=== PATIENT | female | born 1960 | race Caucasian/White ===

== ENCOUNTER → 2020-01-06 09:57 | Outpatient (CLI) | payer OTHER, SELFPAY ==
--- NOTE | ~2020-01-06 | XR_ITS ---
EXAMINATION: XR knee RT 2V DATE: 01/06/2020 10:13 INDICATION: Right knee pain. TECHNIQUE: 2 views of right knee were obtained. COMPARISON: None. FINDINGS: Bone alignment is normal. No fracture. There is mild tricompartmental osteoarthritis. No kn ee joint effusion. IMPRESSION: 1. Mild right knee osteoarthritis. Reviewed, dictated and finalized at location A.
== END ==
PROVIDERS: PCP Nurse Practitioner Family; Visit Provider Nurse Practitioner Family
DX: M25.561 Pain in right knee (principal); M17.11 Unilateral primary osteoarthritis, right knee
CPT/HCPCS: 73560

== ENCOUNTER → 2020-02-27 07:43 | Outpatient (CLI) | payer OTHER, SELFPAY ==
--- NOTE | ~2020-02-27 | MR_ITS ---
EXAMINATION: MR knee RT wo con DATE: 02/27/2020 08:45 INDICATION: Right knee pain. TECHNIQUE: Magnetic resonance imaging (MRI) of the right knee was performed without intravenous contr ast. Sequences included axial PD-weighted FS FSE, coronal PD-weighted FSE and PD-weighted FS FSE, sag ittal PD-weighted FSE, and sagittal T2-weighted FS FSE. COMPARISON: Right knee radiographs 01/06/2020 FINDINGS: Medial compartment: There is a radial tear of posterior horn of medial meniscus. There is deep partial thickness cartilag e loss of tibial condyle involving the anteromedial articular surface with mild subchondral edema-lik e marrow signal intensity. There is deep partial thickness cartilage loss of femoral condyle involvin g the central and medial articular surface with mild subchondral edema-like marrow signal intensity. Lateral compartment: Lateral meniscus is normal. There is cartilage surface irregularity of femoral condyle and tibial con dyle. Patellofemoral compartment: There is shallow partial-thickness cartilage loss of patellar medial facet, median ridge, and lateral facet with mild subchondral edema-like signal intensity. There is cartilage surface irregularity of central trochlea. Ligaments and tendons: The anterior and posterior cruciate ligaments are normal. Medial collateral ligament is normal. There are changes of prior sprain of fibular collateral ligament characterized by thickening and increased signal intensity proximally. There is mild patellar tendinopathy. Fluid: There is a moderate-sized knee joint effusion. There is trace fluid in a Tena's cyst. There is mild prepatellar and superficial infrapatellar bursitis. IMPRESSION: 1. Moderate chondrosis of medial compartment and mild chondrosis of lateral and patellofemoral compar tments. 2. Tear of medial meniscus. 3. Moderate-sized knee joint effusion. Reviewed, dictated and finalized at location A. NURSE IMPRESSION: 1. Moderate chondrosis of medial compartment and mild chondrosis of lateral and patellofemoral compartments. 2. Tear of medial meniscus. 3. Moderate-sized knee joint effusion.
== END ==
PROVIDERS: PCP Family Medicine; Visit Provider Nurse Practitioner Family
DX: S83.241A Other tear of medial meniscus, current injury, right knee, initial encounter (principal); M71.561 Other bursitis, not elsewhere classified, right knee; M25.461 Effusion, right knee
CPT/HCPCS: 73721

== ENCOUNTER 2020-03-09 02:05 | Outpatient (CLI) | payer OTHER, SELFPAY ==
[2020-03-09 18:35] LABS: SARS-CoV-2 RNA PCR Negative
== END 2020-03-09 02:06 | disposition home or self-care (01) ==
LOC: ANHCOVIDDT 02:06
PROVIDERS: PCP Family Medicine; Visit Provider Orthopaedic Surgery
DX: Z01.812 Encounter for preprocedural laboratory examination (principal); Z20.828 Contact with and (suspected) exposure to other viral communicable diseases
CPT/HCPCS: 87635; C9803; U0003

== ENCOUNTER 2020-03-09 10:00 | Outpatient (CLI) | payer OTHER, SELFPAY ==
--- NOTE | 2020-03-09 10:09 | ECG_ITS ---
Measurements Intervals Steen Rate: 56 P: 31 MO: 135 QRS: 15 QRSD: 85 T: 31 QT: 423 QTc: 411 Interpretive Statements SINUS BRADYCARDIA VOLTAGE CRITERIA FOR LVH BORDERLINE T WAVE ABNORMALITY- INF/HIGH LAT LEADS BORDERLINE ECG Electronically Signed On 03-09-2020 10:26:56 DIELECTRIC PRESS OPERATOR by Ernesto Fonseca D.O.
== END 2020-03-09 10:01 | disposition home or self-care (01) ==
PROVIDERS: PCP Family Medicine; Visit Provider Orthopaedic Surgery
DX: Z01.810 Encounter for preprocedural cardiovascular examination (principal); I10 Essential (primary) hypertension
CPT/HCPCS: 93005

== ENCOUNTER 2020-03-12 01:07 | Day surgery (SDC) | payer OTHER, SELFPAY ==
[2020-03-06 12:44] VITALS: BMI 39.8
[2020-03-12] VITALS (11 sets, daily range): BP systolic 113–155; BP diastolic 61–83; PULSE 58–80; RESP 12–22; TEMP 36.3–36.5; O2SAT 97–100
--- NOTE | 2020-03-12 14:26 | WPDANESEPPF ---
Anes - Initial Pre Proc Eval Procedure: Operation Date: 03/12/20 16:00 Proposed Procedures p Arthroscopic Partial Medial Meniscectomy Right Knee - Pa Hyman MD Date/Time: 03/12/20 14:26 Surgeon: Pa Hyman MD Pre Op Diagnosis: medial meniscus tear Right knee Patient Data Age: 59 Gender: F Height: 5 ft 3 in Weight: 102 kg Allergies Allergy/AdvReac Type Severity Reaction Status Date / Time benazepril Allergy Mild Unknown Verified 03/06/20 11:41 Penicillins Allergy Unknown Unknown Verified 03/06/20 11:41 Home Medications Medication Instructions Recorded Confirmed Type tramadol 50 mg tablet 50 mg PO BID PRN #30 tablet 02/28/20 03/09/20 Rx atorvastatin 10 mg PO HS 03/06/20 03/09/20 History escitalopram oxalate [Lexapro] 20 mg PO QAM 03/06/20 03/09/20 History esomeprazole magnesium [Nexium] 20 mg PO DAILY 03/06/20 03/09/20 History ibuprofen 400 mg PO Q6H PRN 03/06/20 03/09/20 History levothyroxine 100 mcg PO QAM 03/06/20 03/09/20 History metoprolol succinate 25 mg PO QAM 03/06/20 03/09/20 History multivitamin [Daily Multiple] 1 tablet PO DAILY 03/06/20 03/09/20 History naproxen sodium [Aleve] 440 mg PO BID PRN 03/06/20 03/09/20 History tizanidine 4 mg PO HS 03/06/20 03/09/20 History alprazolam 0.5 mg tablet 0.5 mg PO QAM PRN #30 tablet 03/10/20 Rx Patient hx anesthesia problems: none Family hx anesthesia problems: none PMFSH Past Medical History Medical History Acquired hypothyroidism Acute right-sided low back pain with right-sided sciatica Anxiety disorder, unspecified Body mass index (BMI) 40.0-44.9, adult (01/05/18) Essential (primary) hypertension Folliculitis Hirsutism Intractable headache Mixed hyperlipidemia Morbid obesity Obesity (BMI 30-39.9) Obesity, unspecified Prediabetes Sciatica of right side Surgical History Surgical History History of appendectomy History of cholecystectomy Family History Family History Other Depression Diabetes mellitus Family history of alcoholism Family history of attention deficit hyperactivity disorder (ADHD) Family history of hearing loss Family history of hepatitis Family history of obesity Family history of thyroid disease Hypertension Social History Social History Smoking packs per day: 0.75 Smoking cigarettes per day: 15.0 Years smoked: 20 Smoking pack-years: 15.00 Smoking status: Former smoker Smoking end date: 09/24/09 Alcohol intake: never Substance use: never Living arrangements: with family Additional living arrangements comments: Spiritual care concerns: No Anes - Eval Final PreProcedure Day of Procedure 03/12/20 14:26 Patient weight: morbidly obese Heart: regular rate and rhythm Lungs: clear to auscultation Airway: Mallampati scale class II Neurological: alert and oriented Last oral intake: >/= 8 hours ASA classification: III Emergent: no Anesthetic plan: proceed Anesthesia type and monitoring: general LMA and standard monitoring Informed Consent: The patient's anesthetic plan and its attendant risks and benefits were discussed with the patient/family/POA. Questions were solicited and answers provided to the satisfaction of the patient/family/POA.
[2020-03-12] MEDS: LACTATED RINGERS 1,000 ML 30 ML IV CONT ×2 (14:52→16:52)
[2020-03-12] MEDS: ACETAMINOPHEN 500 MG TABLET 1000 MG PO (15:08)
[2020-03-12] MEDS: KETOROLAC 15 MG/ML VIAL (*BKC) IV PUSH (15:11)
--- NOTE | 2020-03-12 15:56 | WPDHPUPDATE1 ---
History and Physical Update Update Date/Time: 03/12/20 15:56 History and Physical has been reviewed, including an updated exam of the patient. There are NO changes in the patient's condition. Risks, benefits, and alternatives have been discussed and questions answered. Patient agrees to proceed with procedure.
[2020-03-12] MEDS: ceFAZolin 2 GM/D5W 50 ML 2 GM/50 ML BAG IVPB (16:02)
[2020-03-12] MEDS: BUPIVACAINE/EPINEPHRINE 0.25% 10 ML VIAL 30 ML INFILTRATE (16:18)
--- NOTE | 2020-03-12 16:53 | PM.PROC ---
Procedure Note - Detailed Date of procedure: 03/12/20 Pre-op diagnosis: medial meniscus tear Right knee Medial meniscus tear. Post-op diagnosis: same Procedure performed: Arthroscopic partial medial meniscectomy. Anesthesia: GETA Surgeon: Pa Hyman MD Estimated blood loss (mL): 5 Complications: None Condition: stable Findings: Brief History: The patient complained of knee pain, swelling and mechanical symptoms despite conservative treatment. MRI confirmed the presence of a meniscus tear. Operative Findings: Complex posterior horn tear. Radial component noted and degenerative meniscus along the posterior medial aspect. Debridement carried out with the shaver and punches. Very thin amount of meniscus remained posteriorly. Grade 2 chondromalacia on the femur and tibia. Femur posterior lateral and tibia medial. Lateral compartment showed grade 1/2 chondromalacia on the tibia with softening and fissuring. The femur was normal. The trochlea was benign. The patella showed grade 1 chondromalacia centrally. This was lightly debrided. Procedure Details: The patient was identified and the surgical site confirmed and signed in the preoperative holding area. Antibiotics were started per protocol. She was brought to the operative room and transferred to the OR table. A general anesthetic was administered. Supine position with the operative lower extremity position in the leg stone after placement of a well padded tourniquet. The leg support was lowered and the contralateral limb was supported with a soft bolster. The knee was prepped and draped in the usual sterile fashion. A time-out was performed. The portal sites were marked and infiltrated with 0.5% Marcaine 20 mL. The limb was exsanguinated and the tourniquet inflated to 300 mL Hg. Standard inferolateral and inferomedial portals were established. Inflow was obtained with the saline pump. The camera was introduced. Diagnostic inspection of the joint was accomplished. The meniscus was debrided with the arthroscopic shaver and punches until stable. The arthroscopic instruments were removed. The tourniquet released and wounds closed with subcutaneous 3-0 Monocryl absorbable suture. Steri strips and a sterile dressing were applied. A light elastic wrap was placed. The patient was extubated and brought to the recovery room in stable condition.
[2020-03-12] MEDS: fentaNYL CITRATE INJ (*CRX) 100 MCG/2 ML VIAL 25 MCG IV PUSH ×9 (17:08→17:48)
[2020-03-12] MEDS: oxyCODONE HCL (*CRX) 5 MG TAB IR PO (18:57)
[2020-03-12] MEDS: ONDANSETRON INJ 4 MG/2 ML VIAL IV PUSH (18:57)
--- NOTE | 2020-03-12 19:50 | SUR.PHASEII ---
PT PHARMACY WAS CLOSED BY TIME OF DISCHARGE. PT HAS A PRESCRIPTION AT HOME OF TRAMADOL. DR CHOWDHURY SAID THAT SHE SHOULD TAKE THE TRAMADOL TONIGHT FOR PAIN CONTROL AND THEN TOMORROW ASSISTANT PASTRY CHEF NORCO WITH AN ADDITIONAL PRESCRIPTION OF ZOFRAN. PT AND ARE OK WITH THIS PLAN.
== END 2020-03-12 19:35 | disposition home or self-care (01) ==
PROVIDERS: PCP Family Medicine; Visit Provider Orthopaedic Surgery
PROC: (CPT 29870; principal; 2020-03-12 16:00)
DX: S83.231A Complex tear of medial meniscus, current injury, right knee, initial encounter (principal); W19.XXXA Unspecified fall, initial encounter; M94.261 Chondromalacia, right knee; E03.9 Hypothyroidism, unspecified; F41.9 Anxiety disorder, unspecified; E66.01 Morbid (severe) obesity due to excess calories; Z68.41 Body mass index [BMI] 40.0-44.9, adult; L73.9 Follicular disorder, unspecified; L68.0 Hirsutism; R73.03 Prediabetes
CPT/HCPCS: 29881; 87635; 93005; A9270; C9803; J0690; J1885; J2250; J2405; J2704; J3010; J7120; U0003

== ENCOUNTER 2020-07-10 15:03 | Outpatient (CLI) | payer MEDICARE, SELFPAY ==
--- NOTE | ~2020-07-10 | XR_ITS ---
XR hand RT 2V DATE: 07/10/2020 15:38 INDICATION: Fall on right arm 2 weeks ago. Right hand pain TECHNIQUE: AP and lateral views COMPARISON: None FINDINGS: No fracture or dislocation, periosteal reaction or bone destruction. IMPRESSION: No fracture or dislocation Reviewed, dictated and finalized at location A. IMPRESSION: No fracture or dislocation
--- NOTE | ~2020-07-10 | XR_ITS ---
XR elbow RT 2V DATE: 07/10/2020 15:39 INDICATION: Fall on right arm 2 weeks ago. Right elbow pain TECHNIQUE: AP and lateral views COMPARISON: None FINDINGS: No fracture or dislocation or joint effusion. No periosteal reaction or bone destruction. IMPRESSION: No fracture or dislocation or joint effusion Reviewed, dictated and finalized at location A.
--- NOTE | ~2020-07-10 | XR_ITS ---
XR forearm RT 2V DATE: 07/10/2020 15:38 INDICATION: Fall on right arm 2 weeks ago; right forearm pain TECHNIQUE: AP and lateral views COMPARISON: None FINDINGS: No fracture or dislocation, periosteal reaction or bone destruction. Normal alignment at th e elbow and wrist joints. IMPRESSION: Negative Reviewed, dictated and finalized at location A. IMPRESSION: Negative
--- NOTE | ~2020-07-10 | XR_ITS ---
XR humerus RT DATE: 07/10/2020 15:39 INDICATION: Fall on right arm 2 weeks ago. Right arm, elbow, forearm pain TECHNIQUE: 3 views COMPARISON: None FINDINGS: No fracture or dislocation of the humerus. Normal alignment at the acromioclavicular, gleno humeral and elbow joints. IMPRESSION: Negative right humerus Reviewed, dictated and finalized at location A. IMPRESSION: Negative right humerus
== END 2020-07-10 15:04 | disposition home or self-care (01) ==
PROVIDERS: PCP Family Medicine; Visit Provider Nurse Practitioner Family
DX: M79.601 Pain in right arm (principal); W19.XXXA Unspecified fall, initial encounter
CPT/HCPCS: 73060; 73070; 73090; 73120

== ENCOUNTER → 2020-07-31 10:39 | Outpatient (CLI) | payer MEDICARE, SELFPAY ==
--- NOTE | ~2020-07-31 | MM_ITS ---
EXAMINATION: MM screening [facility] BI w tiffany HISTORY: Screening TECHNIQUE: Craniocaudal and mediolateral oblique 3-D tomosynthesis images were obtained and synthetic 2-D images were generated. CAD analysis was submitted and interpreted. COMPARISON: 09/11/2012 BREAST PARENCHYMAL COMPOSITION: There are scattered areas of fibroglandular density. FINDINGS: Breast asymmetries are stable. There is no evidence of suspicious mass, calcification, or a rchitectural distortion to suggest malignancy in either breast. There has been no suspicious interval change. IMPRESSION: 1. No mammographic evidence of malignancy. 2. Recommend routine screening mammography in one year. BI-RADS Category 1: Negative Reviewed, dictated and finalized at location A.
== END ==
PROVIDERS: PCP Family Medicine; Visit Provider Nurse Practitioner Family
DX: Z12.31 Encounter for screening mammogram for malignant neoplasm of breast (principal)
CPT/HCPCS: 77063; 77067

== ENCOUNTER 2020-11-03 13:11 | Outpatient (CLI) | payer MEDICARE, SELFPAY ==
--- NOTE | 2020-11-03 14:01 | ECG_ITS ---
Measurements Intervals [place] Rate: 63 P: 39 CO: 157 QRS: 25 QRSD: 80 T: 50 QT: 430 QTc: 440 Interpretive Statements SINUS RHYTHM VOLTAGE CRITERIA FOR LVH BASELINE ARTIFACT- I, II, III, AVR, AVL, AVF BORDERLINE ECG Electronically Signed On 11-03-2020 14:50:26 CDT by Ernesto Fonseca D.O.
[2020-11-03 14:02] LABS: Hematocrit 42.7 % (37.0-47.0); Hemoglobin 14.1 g/dL (12.0-15.0); Mean Corpuscular Hemoglobin 28.3 pg (26-34); Mean Corpuscular Volume 85.7 fl (80-100); Platelet Count Result 205 k/mm3 (150-375); Red Blood Count 4.98 M/mm3 (4.2-5.4); White Blood Count 9.7 K/mm3 (4.5-10.0)
[2020-11-03 14:22] LABS: Alanine Aminotransferase 98 U/L (4-35); Albumin Level 4.2 g/dL (3.5-5.1); Alkaline Phosphatase 76 U/L (38-126); Anion Gap 7 mmol/L (8-16); Aspartate Amino Transferase 78 U/L (14-36); Bilirubin,Total 0.7 mg/dL (0.2-1.3); Blood Urea Nitrogen 12 mg/dL (7-17); Calcium 9.5 mg/dL (8.4-10.2); Carbon Dioxide 26 mmol/L (22-30); Chloride 107 mmol/L (98-107); Estimated Glomerular Filt Rate > 60; Glucose 120 mg/dL (65-110); Sodium 140 mmol/L (137-145)
== END 2020-11-03 13:12 | disposition home or self-care (01) ==
LOC: ANHLAB 13:16
PROVIDERS: PCP Family Medicine; Visit Provider Nurse Practitioner Family
DX: I10 Essential (primary) hypertension (principal)
CPT/HCPCS: 36415; 80053; 85027; 93005

== ENCOUNTER → 2021-09-06 10:53 | Outpatient (CLI) | payer MEDICARE, SELFPAY ==
--- NOTE | ~2021-09-06 | US_ITS ---
EXAMINATION: US soft tissue head and neck DATE: 09/06/2021 11:24 INDICATION: Localized swelling, mass and lump, neck. TECHNIQUE: Multiple ultrasound images of the neck were obtained. COMPARISON: None. FINDINGS: The right thyroid lobe measures 3.3 x 1.4 x 1.2 cm. The left thyroid lobe measures 1.4 x 2.9 x 1.2 c m. The thyroid is diffusely heterogeneous and hypoechoic. Vascularity is normal. No discrete nodule. There are normal lymph nodes in the neck bilaterally. IMPRESSION: 1. Heterogeneous thyroid, likely chronic lymphocytic (María) thyroiditis. 2. No abnormal cervical lymphadenopathy. Reviewed, dictated and finalized at location B.
== END ==
PROVIDERS: PCP Family Medicine; Visit Provider Nurse Practitioner Family
DX: E03.9 Hypothyroidism, unspecified (principal)
CPT/HCPCS: 76536

== ENCOUNTER → 2022-04-06 10:43 | Outpatient (CLI) | payer MEDICARE, SELFPAY ==
--- NOTE | ~2022-04-06 | MR_ITS ---
EXAMINATION: MR brain/brain stem wo/w con DATE: 04/06/2022 11:26 INDICATION: Headache. TECHNIQUE: Magnetic resonance imaging (MRI) of the brain and brainstem was performed without and with 14 mL MultiHance intravenous contrast. COMPARISON: Brain MRI 08/03/2010 FINDINGS: There is no intracranial hemorrhage, acute infarction, or abnormal intracranial mass lesion . There are scattered areas of nonspecific increased T2-weighted signal intensity in the cerebral whi te matter and héctor, which is within normal limits for the patient's age. The ventricles are normal in size. The paranasal sinuses are clear. The orbits are normal. The mastoid air cells are normal. IMPRESSION: 1. Normal aging brain. Reviewed, dictated and finalized at location A. LER DRIVER IMPRESSION: 1. Normal aging brain.
== END ==
PROVIDERS: PCP Family Medicine; Visit Provider Nurse Practitioner Family
DX: R51.9 Headache, unspecified (principal)
CPT/HCPCS: 70553; A9577

== ENCOUNTER 2022-12-22 09:07 | Outpatient (CLI) | payer MEDICARE, SELFPAY ==
--- NOTE | 2022-12-22 09:10 | EST_ITS ---
Patient Info Name: Madeline León Age: 62 years : 1960 Gender: Female Ht: 62 in Wt: 163 lbs BSA: 1.82 m2 HR: 56 bpm BP: 190 / 89 mmHg Heart Rhythm: Sinus Rhythm Exam Date: 12/22/2022 9:50 AM Exam Location: [facility] Stress Patient Status: Outpatient Admit Date: 12/22/2022 Staff Ordering Physician: Elizabeth Tamayo Attending Provider: Elizabeth Tamayo Exercise Technologist: Marielos Salazar CT Exercise Physician: Ernesto Fonseca DO Exam Type: CA stress test treadmill Study Info A treadmill exercise stress test was performed. Summary 1. 1. Negative Hayden exercise stress test for ischemic ST changes by ECG criteria. 2. 2. Good functional capacity, achieving 10 METs of workload. 3. 3. Baseline hypertension with hypertensive response to exercise. 4. 4. Appropriate HR response to exercise. 5. 5. Appropriate HR recovery at 1 minute post exercise. 6. 6. No imaging with stress testing. 7. 7. Patient informed of the above results. Protocol: [facility] Stress ECG Details Stage: REST Duration (min): 1 min : 59 sec Speed (mph): 0.0 Grade (%): 0 HR (bpm): 55 SBP (mmHg): 190 DBP (mmHg): 89 METS: --- Stage: REST Duration (min): 6 min : 24 sec Speed (mph): 0.0 Grade (%): 0 HR (bpm): 61 SBP (mmHg): 190 DBP (mmHg): 89 METS: --- Stage: STAGE 1 Duration (min): 1 min : 0 sec Speed (mph): 1.7 Grade (%): 10 HR (bpm): 74 SBP (mmHg): 190 DBP (mmHg): 89 METS: --- Stage: STAGE 1 Duration (min): 2 min : 0 sec Speed (mph): 1.7 Grade (%): 10 HR (bpm): 78 SBP (mmHg): 190 DBP (mmHg): 89 METS: --- Stage: STAGE 1 Duration (min): 3 min : 0 sec Speed (mph): 1.7 Grade (%): 10 HR (bpm): 80 SBP (mmHg): 190 DBP (mmHg): 89 METS: --- Stage: STAGE 2 Duration (min): 1 min : 0 sec Speed (mph): 2.5 Grade (%): 12 HR (bpm): 87 SBP (mmHg): 192 DBP (mmHg): 80 METS: --- Stage: STAGE 2 Duration (min): 2 min : 0 sec Speed (mph): 2.5 Grade (%): 12 HR (bpm): 98 SBP (mmHg): 192 DBP (mmHg): 80 METS: --- Stage: STAGE 2 Duration (min): 3 min : 0 sec Speed (mph): 2.5 Grade (%): 12 HR (bpm): 101 SBP (mmHg): 208 DBP (mmHg): 82 METS: --- Stage: STAGE 3 Duration (min): 1 min : 0 sec Speed (mph): 3.4 Grade (%): 14 HR (bpm): 121 SBP (mmHg): 207 DBP (mmHg): 85 METS: --- Stage: STAGE 3 Duration (min): 2 min : 0 sec Speed (mph): 3.4 Grade (%): 14 HR (bpm): 135 SBP (mmHg): 207 DBP (mmHg): 85 METS: --- Stage: STAGE 3 Duration (min): 2 min : 2 sec Speed (mph): 3.4 Grade (%): 14 HR (bpm): 135 SBP (mmHg): 207 DBP (mmHg): 85 METS: --- Stage: RECOVERY Duration (min): 0 min : 57 sec Speed (mph): 0.0 Grade (%): 0 HR (bpm): 98 SBP (mmHg): 226 DBP (mmHg): 84 METS: --- Stage: RECOVERY Duration (min): 1 min : 10 sec Speed (mph): 0.0 Grade (%): 0 HR (bpm): 89 SBP (mmHg): 226
== END 2022-12-22 09:08 | disposition home or self-care (01) ==
PROVIDERS: PCP Family Medicine; Visit Provider Nurse Practitioner Family
DX: R07.89 Other chest pain (principal); I10 Essential (primary) hypertension
CPT/HCPCS: 93017

== ENCOUNTER 2023-05-19 14:03 | Outpatient (CLI) | payer OTHER, SELFPAY ==
--- NOTE | ~2023-05-19 | CT_ITS ---
EXAMINATION: CT LE RT wo con DATE: 05/19/2023 14:48 INDICATION: Right knee osteoarthritis for preoperative planning. TECHNIQUE: High resolution computed tomography (CT) of the right lower extremity from the hip through the ankle was performed without intravenous contrast. Additional sagittal and coronal reconstruction s were performed. Automated exposure control and iterative reconstruction technique were employed. Th e dose-length product was 1566.81 mGy-cm. COMPARISON: 02/24/2023 FINDINGS: Bone alignment is normal. No fracture. Tricompartmental osteoarthritis at the right knee with mild merna int space narrowing at and small marginal osteophytes at the lateral and patellofemoral compartments. Some reticular sclerosis and a few tiny cystlike changes along the weightbearing medial femoral cond yle and medial tibial plateau consistent with severe osteoarthritis with severe joint space narrowing better appreciated on the prior weightbearing imaging. No knee joint effusion. Mild to moderate oste oarthritis at the right hip with subarticular cystlike change at the anterosuperior acetabulum sugges ting overlying high-grade chondromalacia. Mild osteoarthritis at the right ankle and a few of the gerald nts in the visualized mid and hindfoot. Portions of the pelvis are unremarkable. No pathologically en larged right pelvic or inguinal lymphadenopathy. Soft tissues throughout the right lower limb are unr emarkable. IMPRESSION: 1. Severe medial compartment predominant tricompartmental osteoarthritis at the right knee. Reviewed, dictated and finalized at location A. EMENTERIE WORKER
[2023-05-19 14:44] LABS: Hematocrit 40.9 % (37.0-47.0); Hemoglobin 13.5 g/dL (12.0-15.0)
[2023-05-19 14:55] LABS: Albumin Level 4.1 g/dL (3.5-5.1); Estimated Glomerular Filt Rate > 60; Glucose 113 mg/dL (65-110)
[2023-05-19 17:24] LABS: Urine Cotinine NEGATIVE
== END 2023-05-19 14:04 | disposition home or self-care (01) ==
PROVIDERS: PCP Family Medicine; Visit Provider Orthopaedic Surgery
DX: Z01.818 Encounter for other preprocedural examination (principal); M17.11 Unilateral primary osteoarthritis, right knee; I10 Essential (primary) hypertension; E78.2 Mixed hyperlipidemia; Z79.899 Other long term (current) drug therapy
CPT/HCPCS: 73700; 80307; 82040; 82565; 82947; 85014; 85018

== ENCOUNTER → 2023-05-24 12:39 | Outpatient (CLI) | payer OTHER, SELFPAY ==
--- NOTE | ~2023-05-24 | MM_ITS ---
EXAMINATION: MM screening [facility] BI w tiffany HISTORY: Screening TECHNIQUE: Craniocaudal and mediolateral oblique 3-D tomosynthesis images were obtained and synthetic 2-D images were generated. CAD analysis was submitted and interpreted. COMPARISON: Comparison to multiple prior studies sequentially, with oldest reviewed study dated 04/2008. BREAST PARENCHYMAL COMPOSITION: Dense: The breasts are heterogeneously dense, which may obscure small masses FINDINGS: Bilateral breast asymmetries are unchanged from prior studies. There is no evidence of susp icious mass, calcification, or architectural distortion to suggest malignancy in either breast. There has been no suspicious interval change. IMPRESSION: 1. No mammographic evidence of malignancy. 2. Recommend routine screening mammography in one year. BI-RADS Category 1: Negative Reviewed, dictated and finalized at location A. TERINTELLIGENCE AGENT
== END ==
PROVIDERS: PCP Family Medicine; Visit Provider Family Medicine
DX: Z12.31 Encounter for screening mammogram for malignant neoplasm of breast (principal)
CPT/HCPCS: 77063; 77067

== ENCOUNTER 2023-07-17 11:37 | Outpatient (CLI) | payer OTHER, SELFPAY ==
[2023-07-17 12:54] LABS: Basophils Percent Auto 0.4 % (0.2-1.2); Eosinophils Absolute Auto 0.1 K/mm3 (0-0.3); Eosinophils Percent Auto 1.7 % (0-4.4); Immature Granulocyte Absolute 0.02 K/mm3 (0.00-0.031); Immature Granulocyte Percent A 0.2 % (0-0.5); Lymphocytes Absolute Auto 3.12 K/mm3 (0.9-3.2); Lymphocytes Percent Auto 36.8 % (18.3-44.2); Mean Corpuscular HGB Conc 33.3 g/dl (32-36); Mean Corpuscular Hemoglobin 28.9 pg (26-34); Mean Corpuscular Volume 86.6 fl (80-100); Mean Platelet Volume 10.4 fl (7.4-10.4); Monocytes Absolute Auto 0.5 K/mm3 (0.1-0.6); Monocytes Percent Auto 6.3 % (2.6-8.5); Neutrophils Absolute Auto 4.6 K/mm3 (1.3-6.7); Neutrophils Percent Auto 54.6 % (45.5-73.1); Platelet Count Result 214 k/mm3 (150-375); Red Blood Count 4.85 M/mm3 (4.2-5.4); Red Cell Distribution Width 13.2 % (11.5-14.5); White Blood Count 8.5 K/mm3 (4.5-10.0)
[2023-07-17 13:15] LABS: Urine Cotinine NEGATIVE
[2023-07-17 13:22] LABS: Albumin Level 4.3 g/dL (3.5-5.1); Estimated Glomerular Filt Rate > 60; Glucose 103 mg/dL (65-110)
[2023-07-17 14:18] LABS: MRSA (PCR) NOT DETECTED (NOT DETECTE)
[2023-07-17 17:02] LABS: Hemoglobin A1C 5.5 % (<5.7)
== END 2023-07-17 11:38 | disposition home or self-care (01) ==
LOC: ANHSURGERY 11:41
PROVIDERS: PCP Family Medicine; Visit Provider Orthopaedic Surgery
DX: Z01.818 Encounter for other preprocedural examination (principal); M17.11 Unilateral primary osteoarthritis, right knee
CPT/HCPCS: 80307; 82040; 82565; 82947; 83036; 85025; 87641

== ENCOUNTER 2023-08-08 00:32 | Day surgery (SDC) | payer OTHER, SELFPAY ==
[2023-07-17 11:50] VITALS: BMI 31.6
--- NOTE | 2023-07-17 12:14 | PC.NURSE ---
Report to the Outpatient Waiting Room, entrance under the green pavilion located off [facility], at time _0930 on date _08/08/23 . Planned Procedure Time: __1130 . Time changes happen often and if your time is changed the preop area will call you the afternoon before. - You and your visitor will be asked to self-screen and do not enter if you have any COVID symptoms. - A mask is optional within the hospital at this time. Patients may have clear liquids (water, carbonated beverages, clear teas, apple juice) until 3 hours prior to surgery ( 8:30 AM)with a maximum of 20 ounces. - No food from midnight until time of surgery - Infants may have breast milk until 4 hours before surgery, infant formula 6 hours prior to surgery. - Children will be allowed to drink immediately following surgery. If applicable, please bring a bottle or sippy cup to assist with drinking. Juice, water, soda, and popsicles are readily available. For infants on formula, please bring formula the day of surgery. Pacifiers are allowed. Take the following medications with a SIP of water the morning of surgery: ___ALPRAZOLAM,ESCITALOPRAM,LEVOTHYROXINE,METOPROLOL DO NOT STOP ANY OF YOUR OTHER PRESCRIPTION MEDICATIONS PRIOR TO SURGERY ?EXCEPT THE FOLLOWING Medications to discontinue per physician _PT STATES __HOLD ALL VITAMINS AND SUPPLEMENTS 7 DAYS PRE OP _PER DR COHWDHURY.LAST DOSE /07/31/23 MAY TAKE TYLENOL IF NEEDED FOR PAIN Please no make-up, nail brazilian, hairspray, perfume, deodorant, or body powder the day of surgery. No jewelry (including any body piercings) or valuables the day of surgery, leave them at home. Please take a shower or bath the night before, or the morning of, surgery with an antibacterial soap. Wear comfortable, loose fitting clothing. Children are encouraged to wear pajamas. - Jewelry must be removed prior to entering the operating room. Rings and piercings that are not removed may be cut off. - The hospital will not accept responsibility for valuables. - Please leave all valuables, including medications, at home the day of surgery. If you are going home after surgery, a licensed auto haulaway driver must drive you home. - NO public transportation without another adult if you receive anesthesia. - We recommend that an adult stay with you for 24 hours following discharge. - We also recommend that you do not drive, make important decision, drink alcoholic beverages, or take any drugs that were not prescribed by your health care provider for at least 24 hours after your discharge time. Follow any additional instructions given to you from your surgeon. If you or anyone in your household have experienced Covid symptoms in the past week, please notify your surgeon or the nurse liaison at the phone number below for possible testing. VERBAL AND WRITTEN instructions given to ___PATIENT and asked if any additional questions and then verbalized understanding. Patient advised to call surgeon office or pre surgery nurse liaison [phone] if any additional questions.
[2023-07-17 12:31] VITALS: BP 172/85; PULSE 50; RESP 18; TEMP 36.9; O2SAT 99
[2023-08-08] VITALS (15 sets, daily range): BP systolic 123–191; BP diastolic 78–98; PULSE 52–82; RESP 10–20; TEMP 35.6–36.3; O2SAT 95–100
--- NOTE | ~2023-08-08 | XR_ITS ---
EXAMINATION: [id number]_[id number]_CR DATE: 08/08/2023 14:34 INDICATION: Postoperative evaluation following right total knee arthroplasty. TECHNIQUE: Anteroposterior and lateral views of the right knee were obtained. COMPARISON: None. FINDINGS: Right total knee arthroplasty without patellar resurfacing appears well seated and in near anatomic a lignment. No fractures identified. Expected postoperative subcutaneous and intra-articular gas. IMPRESSION: 1. Right total knee arthroplasty, negative for postoperative purposes. Reviewed, dictated and finalized at location B.
[2023-08-08] MEDS: LACTATED RINGERS 1,000 ML 30 ML IV CONT ×2 (09:35→13:07)
[2023-08-08] MEDS: ACETAMINOPHEN 500 MG TABLET 1000 MG PO (09:35)
[2023-08-08] MEDS: TRANEXAMIC ACID 1,000MG/ISO100 1,000 MG/100 ML BAG 200 MG IVPB (09:35)
--- NOTE | 2023-08-08 10:56 | WPDANESEPPF ---
Anes - Initial Pre Proc Eval Procedure: Operation Date: 08/08/23 11:00 Proposed Procedures p Right Custom Total Knee Arthroplasty - Pa Hyman MD Date/Time: 08/08/23 10:56 Surgeon: Pa Hyman MD Pre Op Diagnosis: primary oa right knee Patient Data Age: 62 Gender: F Height: 1.57 m Weight: 78.6 kg Last Vital Signs Temp 97.3 F L 08/08/23 10:07 Pulse 52 L 08/08/23 10:07 Resp 16 08/08/23 10:07 BP 140/82 08/08/23 10:07 Pulse Ox 97 08/08/23 10:07 O2 Del Method Room Air 08/08/23 10:07 Allergies Allergy/AdvReac Type Severity Reaction Status Date / Time benazepril Allergy Mild Unknown Verified 08/08/23 10:01 Penicillins Allergy Unknown Unknown Verified 08/08/23 10:01 Home Medications Medication Instructions Recorded Confirmed Type escitalopram oxalate 20 mg tablet 20 mg PO DAILY #90 tabs 03/23/23 08/08/23 Rx ezetimibe 10 mg tablet (Zetia) 10 mg PO DAILY #90 tabs 05/18/23 07/21/23 Rx metoprolol tartrate 25 mg tablet See Rx Instructions .Route 05/24/23 08/08/23 Rx .COMPLEX #60 tabs acetaminophen 325 mg capsule 325 mg PO PRN PRN Pain 07/17/23 07/21/23 History (Tylenol) alprazolam 0.5 mg tablet (Xanax) 0.5 mg PO DAILY 07/17/23 08/08/23 History biotin 5,000 mcg sublingual tablet 5,000 mcg sublingual DAILY 07/17/23 07/21/23 History calcium cit 250 mg-ergocalciferol 1 tablet PO DAILY 07/17/23 07/21/23 History (vit D2) 2.5 mcg (100 unit) tablet cholecalciferol (vitamin D3) 50 50 mcg PO DAILY 07/17/23 07/21/23 History mcg (2,000 unit) disintegrating tablet cyanocobalamin (vitamin B-12) 1,000 mcg PO DAILY 07/17/23 07/21/23 History 1,000 mcg tablet multivitamin (Daily Multi-Vitamin 1 tablet PO DAILY 07/17/23 08/08/23 History tablet) pantoprazole 20 mg tablet,delayed 20 mg PO PRN PRN Heartburn 07/17/23 07/21/23 History release cyclobenzaprine 10 mg tablet 10 mg PO .HS PRN muscle spasm #30 07/21/23 07/21/23 Rx tabs levothyroxine 75 mcg tablet 75 mcg PO DAILY #90 tabs 07/26/23 Rx Laboratory Tests 08/08/23 09:56 Blood Type A Negative Antibody Screen Pending Patient hx anesthesia problems: none Family hx anesthesia problems: none Results Review: All pre-operative results and documents have been reviewed as part of the pre-operative evaluation. [facility] Past Medical History Medical History Acquired hypothyroidism Acute right-sided low back pain with right-sided sciatica Anxiety disorder, unspecified BMI 29.0-29.9,adult BMI 30.0-30.9,adult Body mass index (BMI) 40.0-44.9, adult (01/05/18) Essential (primary) hypertension Folliculitis Hirsutism Intractable headache Mixed hyperlipidemia Morbid (severe) obesity due to excess calories Morbid obesity Obesity (BMI 30-39.9) Obesity, unspecified Prediabetes Sciatica of right side Surgical History Surgical History Gastric bypass status for obesity History of appendectomy History of cholecystectomy Status post medial meniscectomy of right knee Family History Family History Father Diabetes mellitus Hypertension S/P removal of lung Mother Hypertension Sibling Diabetes mellitus Obesity Depression Acute myocardial infarction Hypertension Hx of thyroid cancer Thyroid cancer Sibling Acute myocardial infarction Thyroid cancer Other Family history of alcoholism Family history of attention deficit hyperactivity disorder (ADHD) Family history of hearing loss Family history of hepatitis Family history of obesity Family history of thyroid disease Social History Social History Smoking packs per day: 0.75 Smoking cigarettes per day: 15.0 Years smoked: 20 S
[2023-08-08] MEDS: SCOPOLAMINE 1 MG PATCH 1 PATCH TRANSDERM (11:00)
--- NOTE | 2023-08-08 11:03 | WPDHPUPDATE1 ---
History and Physical Update Update Date/Time: 08/08/23 11:03 History and Physical has been reviewed, including an updated exam of the patient. There are NO changes in the patient's condition. Risks, benefits, and alternatives have been discussed and questions answered. Patient agrees to proceed with procedure.
--- NOTE | 2023-08-08 11:09 | WPDANESPNB ---
Anes - Peripheral Nerve Block Date/Time: 08/08/23 11:09 I have discussed with the patient/family/POA the placement of a peripheral nerve block for post-operative pain management, including associated risks, benefits, complications, and side effects. Alternative methods of post-operative analgesia were detailed. Questions were solicited and answers provided to the satisfaction of the patient/family/POA. Time-Out: A pre-procedural Time-Out was completed immediately before starting the procedure and confirmed: Patient Identification, Site, Procedure, Patient Position and the Availability of Requisite Equipment. Clinical Indications: Acute post-operative pain management requested by the operative surgeon. Nerve Block Insertion Note Anes-nerve block: adductor canal Patient position: supine Skin prep: chlorhexidine Needle: 22 gauge, stimulating, insulated echogenic needle. Needle length: 80 mm Technique: ultrasound Injectate: other (Bupiv 0.5%, 15 mls. ) Observations: tolerated well Complications: none Procedure start time:: 1059 Procedure end time:: 1104
[2023-08-08] MEDS: ceFAZolin 2 GM/D5W 50 ML 2 GM/50 ML BAG IVPB ×2 (11:11→20:09)
[2023-08-08] MEDS: SODIUM CHLORIDE 0.9% IV 38.7 ML, MORPHINE SULFATE INJ (*CRX) 2 MG, ROPivacaine HCL 1% 2... INFILTRATE (12:02)
[2023-08-08] MEDS: TRANEXAMIC ACID 1,000 MG/10 ML AMPUL 1000 MG IV PUSH (12:42)
--- NOTE | 2023-08-08 13:31 | P.OP_ITS ---
Procedure Note - Detailed Date of Procedure 08/08/23 Pre-op Diagnosis primary oa right knee Post-op Diagnosis Same Procedure Performed Total knee arthroplasty, right Surgeon Pa Hyman MD Senior Front End Web Developer Liat Martinez PA-C Anesthesia General and Regional (Subsartorial block.) Findings Custom total knee arthroplasty implants fit anatomically. No releases required. Description of Procedure Preoperative antibiotics were given. The limb was prepped and draped in the usual sterile fashion with a well-padded tourniquet high on the thigh. A longitudinal incision was created just medial to the patella. A subvastus approach to the knee was performed. Arthrotomy was taken down through the joint capsule. No significant releases were initially taken. The femur was exposed and the F1 jig was applied. The coring tool was used to remove the cartilage for the F2 jig to sit flush with the bone. The jig was pinned and the distal cut carefully taken. Caliper measurements confirmed appropriate bony resections according to the preoperative templated plan. The F4 cutting jig for the femur was applied, at the standard rotation. The AP and anterior chamfer cuts were taken. The F5 jig was applied and the posterior chamfer cuts were taken. The tibia was prepared using the T1 jig, after removing cartilage for the jig contact points. Proper alignment was checked with the alignment greg. The tibia was cut using the T1u guide. Gap balancing was performed. Gap measurements were taken and the knee was trialed. Excellent alignment and soft tissue balancing was confirmed. The posterior cruciate ligament was recessed along the proximal tibia. The patella was denervated. Meniscal remnants were removed. The trial components were assembled. Excellent range of motion and proper soft tissue balancing were confirmed throughout the full range of motion. Patellar tracking was excellent. The limb was exsanguinated and the tourniquet inflated to 300 mmHg. The knee was copiously irrigated periodically throughout the procedure. The real implants were cemented into position. Excess cement was carefully removed. The wound was closed in layers with interrupted #1 Vicryl suture, 2-0 strata fix suture, 0 strata fix suture, 2-0 strata fix suture. Steri-Strips placed on the skin with the knee flexed. Sterile bulky dressing applied. The patient was brought to the recovery room in stable condition. There were no complications. Physician professional nursing assistant, Liat Pisarski, PA-C, required for surgery; including patient positioning, draping, tissue retraction, maintaining instrument position, cement removal, wound closure, and dressing placement. Implants Conformis Custom total knee arthroplasty. Cemented. Cruciate retaining. 6A insert. Estimated Blood Loss 150 Drains No Complications No immediate complications Condition Stable Disposition PACU [facility] Billing Surgery - Charge Forward: Surgery Billing
[2023-08-08] MEDS: fentaNYL CITRATE INJ (*CRX) 100 MCG/2 ML VIAL 25 MCG IV PUSH ×8 (13:52→14:27)
--- NOTE | 2023-08-08 15:10 | PC.NURSE ---
This patient, Madeline León, was admitted to 3 Med Surg Room 301-01. Patient/family oriented to hospital policies and general routines including ID bracelet, bed and alarms, visiting hours, pain management, procedures, bathroom and other care routines, personal items, smoking policy, room service/diet, and visiting hours. Information on how to activate the Rapid Response Team has been discussed. Patient/Family are encouraged to report perceived risks to care and to ask questions if they do not understand what they are told or what they should do.
[2023-08-08] MEDS: IBUPROFEN IV 800 MG/200 ML 800 MG/200 ML BAG 400 MG IVPB ×2 (16:09→22:51)
[2023-08-08] MEDS: METOPROLOL TARTRATE 25 MG TABLET PO (16:10)
[2023-08-08] MEDS: predniSONE 5 MG TABLET PO (16:11)
[2023-08-08] MEDS: SENNA/DOCUSATE SODIUM TABLET 2 TAB PO (16:11)
[2023-08-08] MEDS: ACETAMINOPHEN 325 MG TABLET 650 MG PO (18:07)
[2023-08-08] MEDS: ASPIRIN 81 MG ENTERIC TABLET PO (20:10)
[2023-08-08] MEDS: SODIUM CHLORIDE 0.9% IV 100 ML (20:10)
[2023-08-09] MEDS: ACETAMINOPHEN 325 MG TABLET 650 MG PO ×3 (00:20→11:01)
[2023-08-09 00:24] VITALS: BP 131/71; PULSE 58; RESP 16; TEMP 36.2; O2SAT 99
[2023-08-09 04:24] VITALS: BP 153/75; PULSE 54; RESP 14; TEMP 36.2; O2SAT 96
[2023-08-09] MEDS: ceFAZolin 2 GM/D5W 50 ML 2 GM/50 ML BAG IVPB ×2 (04:45→11:01)
[2023-08-09] MEDS: IBUPROFEN IV 800 MG/200 ML 800 MG/200 ML BAG 100 MG IVPB (05:53)
[2023-08-09 06:10] LABS: Basophils Percent Auto 0.1 % (0.2-1.2); Hematocrit 36.8 % (37.0-47.0); Hemoglobin 12.3 g/dL (12.0-15.0); Immature Granulocyte Absolute 0.08 K/mm3 (0.00-0.031); Immature Granulocyte Percent A 0.6 % (0-0.5); Lymphocytes Absolute Auto 1.17 K/mm3 (0.9-3.2); Lymphocytes Percent Auto 8.3 % (18.3-44.2); Mean Corpuscular HGB Conc 33.4 g/dl (32-36); Mean Corpuscular Volume 86.8 fl (80-100); Mean Platelet Volume 11.6 fl (7.4-10.4); Monocytes Absolute Auto 0.6 K/mm3 (0.1-0.6); Neutrophils Absolute Auto 12.3 K/mm3 (1.3-6.7); Nucleated Red Blood Cells Perc 0.1 % (0.0-0.2); Platelet Count Result 181 k/mm3 (150-375); Red Blood Count 4.24 M/mm3 (4.2-5.4); Red Cell Distribution Width 12.8 % (11.5-14.5); White Blood Count 14.1 K/mm3 (4.5-10.0)
[2023-08-09 06:28] LABS: Anion Gap 6 mmol/L (4-12); Blood Urea Nitrogen 13 mg/dL (7-17); Calcium 8.9 mg/dL (8.4-10.2); Carbon Dioxide 23 mmol/L (22-30); Chloride 107 mmol/L (98-107); Estimated CRCL calculation 57 ml/min; Estimated Glomerular Filt Rate > 60; Glucose 239 mg/dL (65-110); Sodium 136 mmol/L (137-145)
--- NOTE | 2023-08-09 07:46 | PM.DS ---
DS: Admitting Diagnosis Discharge Date 08/09/23 Admitting Diagnosis Knee arthritis. DS: Discharge Diagnosis Discharge Diagnosis (1) Status post total right knee replacement: Code(s): Z96.651 - Presence of right artificial knee joint Status: Acute Assessment and Plan: Postop day 1: Right total knee arthroplasty. Patient tolerated procedure well. No complications. Pain manageable with pain medication. No numbness or tingling. We had a lengthy discussion regarding postoperative wound care, limitations, expectations, and exercises. Patient shows good understanding. She has had initial physical therapy and is tolerating it well. DVT prophylaxis: 81 mg baby aspirin b.i.d. for 14 days. Pain medication: Percocet. Prednisone. Patient has followup appointment with Dr. Hyman in 3 weeks. DS: Summary Hospital Course Reason for hospitalization: Total knee arthroplasty Hospital Course: Patient tolerated procedure well. Has had initial PT/OT. No complications. Pain well managed. Status at Discharge Functional status at discharge: uses cane/walker Overall status at discharge: patient is progressing back to baseline Time Spent with Patient Time attestation: Total time spent providing and/or coordinating discharge services: Exam Narrative: Overweight 62 y/o female. Resting comfortably in chair. No acute distress. A&O x3. Wearing compression socks bilaterally. Dressing intact with no drainage. Moderate swelling. Small area of ecchymosis medially. Soft. No erythema. No hematoma. Good early range of motion. Calf nontender. Neurologic status intact. No varicosities. Distal pulses palpable. DS: Data Data Completed and Pending Labs on day of discharge: Labs from last 24 hours 08/09/23 08/08/23 05:01 09:56 WBC 14.1 H RBC 4.24 Hgb 12.3 Hct 36.8 L MCV 86.8 MCH 29.0 MCHC 33.4 RDW 12.8 Plt Count 181 MPV 11.6 H Immature Gran % (Auto) 0.6 H Neut % (Auto) 87.0 H Lymph % (Auto) 8.3 L Luna % (Auto) 4.0 Eos % (Auto) 0.0 Baso % (Auto) 0.1 L Lymph # (Auto) 1.17 Luna # (Auto) 0.6 Eos # (Auto) 0.0 Baso # (Auto) 0.0 Abs Immat Gran (auto) 0.08 H Absolute Neuts (auto) 12.3 H Absolute Nucleated RBC 0.020 H Nucleated RBC % 0.1 Sodium 136 L Potassium 4.0 Chloride 107 Carbon Dioxide 23 Anion Gap 6 BUN 13 Creatinine 0.90 Estim Creat Clear Calc 57 Estimated GFR > 60 Glucose 239 H Calcium 8.9 Blood Type A Negative Antibody Screen Negative Discharge Plan Discharge Patient Disposition: Home, Self-Care Discharge Instructions: See green instruction sheets Remove the Scopolamine patch that was placed behind your ear in 72 hours or less. Wash your hands after touching. Stand Alone Forms: General Discharge Instructions Follow-up/Referrals: Liat Martinez PA [Physician Brand Sales Consultant] - Discharge Medications: New aspirin 81 mg tablet,delayed release (DR/EC) 81 mg PO BID 14 Days Qty: 28 0RF prednisone 5 mg tablet 5 mg PO DAILY 21 Days Qty: 21 0RF oxycodone-acetaminophen 5-325 mg tablet 1 - 2 tablet PO Q4-6H MDD 6 PRN (Reason: pain) Qty: 30 0RF Continued cyclobenzaprine 10 mg tablet 10 mg PO .HS PRN (Reason: muscle spasm) Qty: 30 3RF alprazolam [Xanax] 0.5 mg tablet 0.5 mg PO DAILY pantoprazole 20 mg tablet,delayed release (DR/EC) 20 mg PO PRN PRN (Reason: Heartburn) multivitamin [Daily Multi-Vitamin] Tablet 1 tablet PO DAILY calcium citrate-vitamin D2 250 mg-2.5 mcg (100 unit) Tablet 1 tablet PO DAILY biotin 5,000 mcg Tablet, Sublingual 5,000 mcg SUBLINGUAL DAILY cyanocobalamin (vitamin B-12) 1,000 mcg Tablet 1,000 mcg PO DAILY cholecalciferol (vitamin D3) 50 mcg (2,000 unit) Tablet,Disintegrating 50 mcg PO DAILY acetaminophen [Tylenol] 325 mg Capsule 325 mg PO PRN PRN (Reason: Pain) escitalopram oxalate 20 m
[2023-08-09 08:10] VITALS: BP 152/78; PULSE 64; RESP 16; TEMP 36.4; O2SAT 99
[2023-08-09] MEDS: CYCLOBENZAPRINE HCL 10 MG TABLET PO (08:42)
[2023-08-09] MEDS: polyethylene glycoL 3350 17 GM POWD.PACK PO (08:42)
[2023-08-09] MEDS: METOPROLOL TARTRATE 25 MG TABLET PO (08:42)
[2023-08-09] MEDS: EZETIMIBE 10 MG TABLET PO (08:42)
[2023-08-09] MEDS: ESCITALOPRAM OXALATE 10 MG TABLET 20 MG PO (08:42)
[2023-08-09] MEDS: SENNA/DOCUSATE SODIUM TABLET 2 TAB PO (08:42)
[2023-08-09] MEDS: traMADol HCL (*CRX) 50 MG TABLET PO (08:43)
[2023-08-09] MEDS: ASPIRIN 81 MG ENTERIC TABLET PO (08:43)
[2023-08-09 12:02] VITALS: BP 147/68; PULSE 74; RESP 18; TEMP 36.7; O2SAT 98
== END 2023-08-09 13:07 | disposition home or self-care (01) ==
LOC: ANHSURGERY 11:25 → ANH3MEDSUR 14:42
PROVIDERS: Physician Assistant Surgical; PCP Family Medicine; Visit Provider Orthopaedic Surgery
PROC: (CPT 27447; principal; 2023-08-08 11:00)
DX: M17.11 Unilateral primary osteoarthritis, right knee (principal); G89.18 Other acute postprocedural pain; E03.9 Hypothyroidism, unspecified; I10 Essential (primary) hypertension; E78.2 Mixed hyperlipidemia; E66.9 Obesity, unspecified; Z68.31 Body mass index [BMI] 31.0-31.9, adult; Z98.84 Bariatric surgery status; F41.9 Anxiety disorder, unspecified; Z87.891 Personal history of nicotine dependence
CPT/HCPCS: 27447; 64447; 36415; 73560; 80048; 80307; 82040; 82565; 82947; 83036; 85025; 86850; 86900; 86901; 87641; 97110; 97116; 97161; 97165; 97530; 97535; A9270; C1713; C1776; J0171; J0690; J1100; J1596; J1741; J1885; J2250; J2270; J2405; J2704; J2795; J3010; J7120; J7512

== ENCOUNTER 2023-09-26 14:11 | Outpatient (CLI) | payer OTHER, SELFPAY ==
--- NOTE | ~2023-09-26 | XR_ITS ---
XR knee RT 3V Ordering provider: Pa Hyman MD History: . Z47.1 - Aftercare following joint replacement surgery . Comparison: February 24, 2023 FINDINGS: BONES: No acute fracture or dislocation. JOINT SPACES: Total knee arthroplasty. SOFT TISSUES: Normal. IMPRESSION: No acute osseous abnormality right knee. Total knee arthroplasty. Reviewed, dictated and finalized at location A.
== END 2023-09-26 14:12 | disposition home or self-care (01) ==
LOC: ANHIMG 14:15
PROVIDERS: PCP Family Medicine; Visit Provider Orthopaedic Surgery
DX: Z47.1 Aftercare following joint replacement surgery (principal); Z96.651 Presence of right artificial knee joint
CPT/HCPCS: 73562

== ENCOUNTER 2023-10-25 15:20 | Outpatient (CLI) | payer OTHER, SELFPAY ==
--- NOTE | ~2023-10-25 | MR_ITS ---
EXAMINATION: MR brain/brain stem wo con DATE: 10/25/2023 15:53 INDICATION: Disorientation, unspecified. TECHNIQUE: Magnetic resonance imaging (MRI) of the brain and brainstem was performed without intraven ous contrast. COMPARISON: Brain MRI 04/06/2022 FINDINGS: There is no intracranial hemorrhage, acute infarction, or abnormal intracranial mass lesion . There are scattered areas of nonspecific increased T2-weighted signal intensity in the cerebral whi te matter and héctor, which is within normal limits for the patient's age. The ventricles are normal in size. The orbits are normal. The paranasal sinuses are clear. The mastoid air cells are normal. IMPRESSION: 1. Normal aging brain. Reviewed, dictated and finalized at location A. IMPRESSION: 1. Normal aging brain.
== END 2023-10-25 15:21 ==
LOC: MICIMG 15:21
PROVIDERS: PCP Family Medicine; Visit Provider Nurse Practitioner Family
DX: R41.0 Disorientation, unspecified (principal)
CPT/HCPCS: 70551

== ENCOUNTER 2024-02-02 12:00 | Outpatient (CLI) | payer OTHER, SELFPAY ==
--- NOTE | ~2024-02-02 | XR_ITS ---
EXAMINATION: XR knee RT 3V DATE: 02/02/2024 12:12 INDICATION: Aftercare following joint replacement surgery. Right knee pain. TECHNIQUE: 3 views of right knee including standing views were obtained. COMPARISON: Right knee radiographs 09/26/2023 FINDINGS: There is a total right knee arthroplasty without patellar resurfacing in near-anatomic alig nment. No fracture. No periprosthetic lucency to suggest loosening or infection. There are osteophyte s of the patella. There is a small knee joint effusion. IMPRESSION: 1. Total right knee arthroplasty in near-anatomic alignment. 2. Mild osteoarthritis of patellofemoral compartment. 3. Small knee joint effusion. Reviewed, dictated and finalized at location A. MAN
== END 2024-02-02 12:01 | disposition home or self-care (01) ==
LOC: MICIMG 12:01
PROVIDERS: PCP Orthopaedic Surgery; Visit Provider Orthopaedic Surgery
DX: Z47.1 Aftercare following joint replacement surgery (principal); M17.11 Unilateral primary osteoarthritis, right knee; M25.461 Effusion, right knee
CPT/HCPCS: 73562

== ENCOUNTER 2024-05-06 08:47 | Outpatient (CLI) | payer MEDICARE, SELFPAY ==
--- NOTE | 2024-05-06 08:58 | ECHO_ITS ---
Patient Info Name: Madeline León Age: 63 years : 1960 Gender: Female Ht: 62 in Wt: 166 lbs BSA: 1.84 m2 HR: 42 bpm BP: 161 / 100 mmHg Technical Quality: Good Exam Date: 05/06/2024 9:07 AM Exam Location: Echo Lab Patient Status: Outpatient Admit Date: 05/06/2024 Staff Ordering Physician: Elizabeth Tamayo Arboriculturist: Carmelina Lira RDCS Attending Provider: Elizabeth Tamayo Referring Physician: Roni GRAHAM; Exam Type: CA echo doppler color flow Study Info Indications I10 - Essential (primary) hypertension Complete two-dimensional, color flow and Doppler transthoracic echocardiogram is performed. Summary 1. Complete two-dimensional, color flow and Doppler transthoracic echocardiogram is performed. 2. Left ventricular chamber dimension is normal. 3. Left ventricular systolic function is normal, estimated at 60-65%. 4. The left ventricular diastolic function is abnormal. 5. E/e' 10 is mildly elevated. 6. Global longitudinal strain is normal at -17.2%. 7. Left atrial chamber dimension is mildly enlarged. 8. There is mild aortic valve sclerosis. 9. There is mild aortic valve regurgitation. 10. There is trace tricuspid valve regurgitation. 11. No pulmonary hypertension, estimated pulmonary arterial systolic pressure is 23 mmHg. 12. There is mild pulmonic regurgitation. Left Ventricle E/e' 10 is mildly elevated. Global longitudinal strain is normal at -17.2%. Left ventricular chamber dimension is normal. Left ventricular systolic function is normal, estimated at 60-65%. The left ventricular diastolic function is abnormal. Right Ventricle Right ventricular systolic function is normal and with normal TAPSE 2.2 cm. Right ventricular chamber dimension is normal. Left Atria Left atrial chamber dimension is mildly enlarged. Right Atria Right atrial chamber dimension is normal. Aortic Valve The aortic valve is trileaflet. There is mild aortic valve sclerosis. There is no aortic valve stenosis. There is mild aortic valve regurgitation. Pulmonic Valve There is mild pulmonic regurgitation. Mitral Valve There is no mitral valve stenosis. There is no mitral valve regurgitation. Tricuspid Valve There is trace tricuspid valve regurgitation. No pulmonary hypertension, estimated pulmonary arterial systolic pressure is 23 mmHg. Pericardium/Pleural There is no pericardial effusion. Inferior Vena Cava Normal inferior vena cava with >50% collapse upon inspiration consistent with normal right atrial pressure, 5 mmHg. Aorta The aortic root size at the sinus of Valsalva is normal. Left Ventricular Outflow Tract Name Value Normal LVOT 2D LVOT Diameter 2.0 cm LVOT Doppler LVOT Peak Gradient 4 mmHg LVOT Mean Gradient 2 mmHg LVOT VTI 23 cm LVOT VTI/AV VTI Ratio 0.8 LVOT Stroke Volume 73 ml LVOT CO 3.2 l/min LVOT CI 1.8 l/min/m2 Pulmonic Valve Name Value Normal RVOT Doppler RVOT Peak Gradient 2 mmHg PV Doppler PV Peak Gradient 3 mmHg Mitral Valve Name Value Normal MV Doppler MV Decel Randall 473 cm/s2 MV PHT 50 ms MV Area (PHT) 4.4 cm2 4.0-5.0 MV Diastolic Function MV E Peak Velocity 81 cm/s MV A Peak Velocity 51 cm/s MV E/A 1.6 MV Decel Time 172 ms Tricuspid Valve Name Value Normal TV Regurgitation Doppler TR Peak Velocity 214 cm/s TR Peak Gradient 18 mmHg Estimated PAP/RSVP RA Pressure 5 mmHg <=5 PA Systolic Pressure 23 mmHg <36 RV Systolic Pressure 23 mmHg <36 Aorta Name Value Normal Ascending Aorta Ao Root Diameter (MM) 2.9 cm Ao Root Diam Index (MM) 1.6 cm/m2 Aortic Valve Name Value Normal AV Doppler AV Peak Velocity 115 cm/s AV Peak Gradient 5 mmHg AV Mean Gradient 3 mmHg AV VTI 28 cm AV Area (Cont Eq VTI) 2.7 cm2 >=3.0 AV Area (Cont Eq Deon) 2.7 cm2 AV Regurgitation 2D LVOT Area 3.2 cm2 AV Regurgitation Doppler AR Decel Time 3,074 ms AR Decel Randall 150 cm/s2 AR PHT 892 ms Ventricles Name Value Normal LV Dimensions 2D/MM IVS Diastolic Thickness (2D) 1.1 cm 0.6-1.0 IVS Diastole Thickness (MM) 0.9 cm 0.6-0.9 LVID Diastole (2D) 3.9 cm 3.8-5.2 LVID Diastole (MM) 5.5 cm 3.8-5.2 LVIW Diastolic Thickness (2D) 1.1 cm 0.6-0.9 LVIW Diastolic Thickness (MM) 0.8 cm 0.6-0.9 LVID Systole (2D) 2.5 cm 2.2-3.5 LVID Systole (MM) 3.6 cm 2.2-3.5 LVOT Diameter 2.0 cm LV Mass (2D Cubed) 144.46 g 67.00-162.00 LV Mass Index (2D Cubed) 78 g/m2 43-95 Relative Wall Thickness (2D) 0.57 LV Mass (MM Cubed) 170.98 g 67.00-162.00 LV Mass Index (MM Cubed) 93 g/m2 43-95 Relative Wall Thickness (MM) 0.28 LV Fractional Shortening/Ejection Fraction 2D/MM LV Fractional Shortening (2D) 38 % 27-45 LV Fractional Shortening (MM) 34 % 27-45 LV EF (MM Teicholz) 63 % 54-74 LV EF (2D Teicholz) 68 % 54-74 LV Diastolic Volume (4C MOD) 80 ml LV EF (4C MOD) 71 % LV Diastolic Volume (2C MOD) 72 ml LV EF (2C MOD) 64 % LV Diastolic Volume (BP MOD) 77 ml 46-106 LV Diastolic Volume Index (BP MOD) 42 ml/m2 29-61 LV Systolic Volume (BP MOD) 25 ml 14-42 LV Systolic Volume Index (BP MOD) 14 ml/m2 8-24 LV EF (BP MOD) 68 % 54-74 LV Diastolic Length (4C) 8.6 cm LV Systolic Length (4C) 6.8 cm LV Stroke Volume (4C MOD) 56 ml Atria Name Value Normal LA Dimensions LA Dimension (MM) 4.1 cm 2.7-3.8 LA Volume (4C A-L) 50 ml LA Volume (BP A-L) 50 ml RA Dimensions RA Area (4C) 11.7 cm2 <=18.0 EchoPAC Name Value Normal AutoEF LVCO_BiP_Q (Kjnm9LEH) 1.9 l/min LVEF_BiP_Q (Uemn5DXC) 64 % LVSV_BiP_Q (Lkns9YLI) 59 ml LVVED_BiP_Q (Koxp5KJN) 92 ml LVVES_BiP_Q (Ztht8MCV) 33 ml HR_4Ch_Q (Ijqi9OYR) 34 bpm LVCO_4Ch_Q (Itge0TST) 2.0 l/min LVEF_4Ch_Q (Wgez2PUA) 61 % LVLd_4Ch_Q (Yjfk3BXG) 8.4 cm LVLs_4Ch_Q (Voir7SNT) 6.7 cm LVSV_4Ch_Q (Egxz3RPX) 58 ml LVVED_4Ch_Q (Ljhp8DAX) 96 ml LVVES_4Ch_Q (Jrkl8LTA) 38 ml HR_2Ch_Q (Dguo3WHE) 30 bpm LVCO_2Ch_Q (Qfxf0ZLV) 1.8 l/min LVEF_2Ch_Q (Pbyh9IDM) 67 % LVLd_2Ch_Q (Lncu9BID) 8.4 cm LVLs_2Ch_Q (Zhuj8NBO) 7.0 cm LVSV_2Ch_Q (Tela2DJB) 60 ml LVVED_2Ch_Q (Koax9ATC) 89 ml LVVES_2Ch_Q (Bhkm1OMK) 29 ml SONYA AA peak sys SL (AWMA) 21.0 % AAS peak sys SL (AWMA) 14.3 % AI peak sys SL (AWMA) 22.1 % AL peak sys SL (AWMA) 23.1 % AP peak sys SL (AWMA) 15.5 % peak sys SL (AWMA) 28.0 % AVC (AWMA) 455 ms BA peak sys SL (AWMA) 15.8 % BAS peak sys SL (AWMA) 12.7 % BI peak sys SL (AWMA) 10.0 % BL peak sys SL (AWMA) 20.8 % BP peak sys SL (AWMA) 26.7 % BS peak sys SL (AWMA) 12.0 % G peak SL(A2C) (AWMA) 17.1 % G peak SL(A4C) (AWMA) 19.6 % G peak SL(APLAX) (AWMA) 15.2 % G peak SL(Avg) (AWMA) 17.3 % MA peak sys SL (AWMA) 19.3 % MAS peak sys SL (AWMA) 14.4 % UT peak sys SL (AWMA) 20.3 % ML peak sys SL (AWMA) 14.6 % MP peak sys SL (AWMA) 11.4 % MS peak sys SL (AWMA) 19.3 % Report Signatures
--- OUTSIDE RECORDS SUMMARY | 2024-05-06 09:06 | XMS_ITS | Encounter Summary ---
Author Organization [facility] Address [address] [place] [address] Care Team Providers Care Cold Roll Catcher Name Role Phone Pepe Shabazz MD Primary Care Provider [phone] Encounter Details Date Type Department Care Team (Late st Contact Info) Description 09/11/2020 Abstract [facility] Non Integrated Provider [address] [place] [address] Trenton Lozada MD [address] [place] [address] Social History Tobacco Use Types Packs/Day Years Used Date Smoking Tobacco: Former Cigarettes Q uit: 03/27/2008 Smokeless Tobacco: Never Alcohol Use Standard Drinks/Week Comments Yes 0 (1 standard drink = 0.6 oz pur e alcohol) 2 glasses of wine yearly Comments No Sex and Gender Information Value Date Recorded Sex Assigned at Not on file Legal Sex Female 9:15 AM CDT Gender Identity Not on file Sexual Orientation Not on file COVID-19 Exposure Response Date Recorded In the last month, have you been in contact with someone who was confirmed or suspected to have Coronavirus / COVID-19? No / Unsure 08/21/2020 6:58 AM CDT documented as of this encounter Plan of Treatment Not on file documented as of this encounter Visit Diagnoses Not on filedocumented in this encounter Care Teams Cold Roll Catcher Relationship Specialty Start Date End Date Pepe Shabazz MD [address] [place] [address] PCP - General Family Practice 08/21/20 documented as of this encounter
--- OUTSIDE RECORDS SUMMARY | 2024-05-06 09:06 | XMS_ITS | Clinical Summary ---
Author Organization [facility] Address [address] [place] [address] Phone Care Team Providers Care Statistical Typist Name Role Phone Pepe Shabazz MD Primary Care Provider [phone] Allergies Active Allergy Reactions Criticality Noted Date Comments Penicillins Unknown 2020 Medications escitalopram oxalate (LEXAPRO) 20 mg tablet Take 20 mg by mouth daily. Active tiZANidine (ZANAFLEX) 4 mg Tablet Take 4 mg by mouth daily at bedtime. Active levothyroxine 100 mcg tablet Take 100 mcg by mouth daily in the morning. Active ALPRAZolam (XANAX) 0.5 mg tablet Take 0.5 mg by mouth daily. Active pantoprazole (Protonix) 40 mg Tablet, Delayed Release (E.C.) Take 1 Tablet (40 mg) by mouth daily. 90 Tablet 3 08/21/2020 Active HYDROcodone-acet aminophen (HYCET) 7.5-325 mg/15 mL SolutionIndicati ons:Preop testing Take 15 mL by mouth every 6 hours as needed for Pain, Severe. Max Daily Amount: 60 mL 300 mL 11/13/2020 1:41 PM CDT 11/11/2020 Active ondansetron (Zofran ODT) 4 mg Tablet, Rapid DissolveIndicati ons:nausea Place 1 Tablet (4 mg) under tongue every 6 hours as needed for Nausea/Vomi ting. 28 Tablet 11/13/2020 1:41 PM CDT 11/11/2020 Active metoprolol tartrate (LOPRESSOR) 25 mg tablet Take 1 Tablet (25 mg) by mouth 2 times daily. 60 Tablet 11/13/2020 1:41 PM CDT 11/13/2020 Active lisinopriL (PRINIVIL) 20 mg tablet Take 1 Tablet (20 mg) by mouth daily. 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 11/11/2020 Obstructive sleep apnea 11/11/2020 Social History Tobacco Use Types Packs/Day Years [...] on file Sexual Orientation Not on file Last Filed Vital Signs Vital Sign Reading Time Taken Comments Blood Pressure 157/71 11/13/2020 3:45 PM CDT Pulse 56 11/13/2020 3:45 PM CDT Temperature 37 C (98.6 F) 11/13/2020 3:45 PM CDT Respiratory Rate 16 11/13/2020 3:45 PM CDT Oxygen Saturation 93% 11/13/2020 3:45 PM CDT Inhaled Oxygen Concentration - - Weight 109.1 kg (240 lb 9.6 oz) 11/13/2020 6:46 AM CDT Height 157.5 cm (5' 2 ) 11/12/2020 12:2 0 AM CDT Body Mass Index 44.01 11/12/2020 12:20 AM CDT Plan of Treatment Health Maintenance Due Date Last Done Comments DTAP/TDAP/TD VACCINES (1 - Tdap) 1981 CERVICAL CANCER SCREENING 1992 BREAST CANCER SCREENING 2002 COLORECTAL SCREENING 08/18/2007 Colorectal Cancer Screening 08/18/2007 FIT-DNA Q 3 years 08/18/2007 FIT/FOBT Q 1 year 08/18/2007 Flex Sig/CT Colonography Q 5 years 08/18/2007 ZOSTER VACCINE (1 of 2) 2012 INFLUENZA VACCINE (#1) 2023 RSV VACCINE (60+ or ) (1 - 1-dose 75+ series) 2037 PNEUMOCOCCAL VACCINE 0-64 YEARS Aged Out No longer eligible based on patient's age to complete this topic Medical Devices Implanted Type Area Dredge Engineer Device Identifier Shelf Expiration Date Model / Serial / Lot Staff Psychologist Endoclip Iii 5mm W/Cliplogic [id number] - [id number] Implanted:Qty : 1 on 11/11/2020 at [facility] Clip N/A: Abdomen [employer] - COVIDIEN [id number] 06/25/2023 [id number] / / [id number] Sealant Fibrin Vistaseal 10ml Vst10 - [id number] Implanted:Qty : 1 on 11/11/2020 at [facility] Sealant N/A: Abdomen [employer] 12/28/2021 [id number] / / [id number] [employer] [facility] RX Enable Injections Medicare Part D RX [employer] PLANS (INTERNAL) [facility] Internal Plans Advance Directives For more information, please contact: [phone] * Full Code (Latest Code Status on File) Date Activated Date Inactivated Comments 11/11/2020 8:38 AM 11/13/2020 6:25 PM * Full Code Date Activated Date Inactivated Comments 08/21/2020 7:33 AM 08/21/2020 11:43 AM Care Teams Statistical Typist Relationship Specialty Start Date End Date Pepe Shabazz MD [address] [place] [address] PCP - General Family Practice 08/21/20
--- OUTSIDE RECORDS SUMMARY | 2024-05-06 09:06 | XMS_ITS | Clinical Summary ---
Author Organization [facility] Address [address] [place] [address] Care Team Providers Care Physical Ther Name Role Phone Pepe Shabazz MD Primary Care Provider [phone] Allergies Active Allergy Reactions Criticality Noted Date Comments Penicillins Unknown 11/15/2022 Medications No known medications Family History Medical History Relation Comments Heart Disease Sister Relation Status Comments Sister Social History Tobacco Use Types Packs/Day Years Used Date Smoking Tobacco: Former Cigarettes Smokeless Tobacco: Never Tobacco Cessation:Counseling Given: Not Answered Alcohol Use Standard Drinks/Week Comments Not Currently 0 (1 standard drink = 0.6 oz pur e alcohol) Comments No Sex and Gender Information Value Date Recorded Sex Assigned at Not on file Legal Sex Female 4:14 PM CDT Gender Identity Not on file Sexual Orientation Not on file Last Filed Vital Signs Vital Sign Reading Time Taken Comments Blood Pressure 176/80 11/15/2022 7:00 PM CDT Pulse 47 11/15/2022 7:00 PM CDT Temperature 36.3 C (97.4 F) 11/15/2022 7:00 PM CDT Respiratory Rate 15 11/15/2022 7:00 PM CDT Oxygen Saturation 96% 11/15/2022 7:00 PM CDT Inhaled Oxygen Concentration - - Weight 76.2 kg (168 lb) 11/15/2022 4:20 PM CDT Height 157.5 cm (5' 2 ) 11/15/2022 4:20 PM CDT Body Mass Index 30.73 11/15/2022 4:20 PM CDT Plan of Treatment Health Maintenance Due Date Last Done Comments Cervical Cancer Screening Pa p Smear (Age 30 to 64) Every 3 Years 1962 Colorectal Cancer Screening Colonoscopy (10 Years) 1962 Annual Physical 1965 Hepatitis C 1980 DTaP, Tdap and Td Vaccines ( 1 - Tdap) 1981 Cervical Cancer Screening Pa p with HPV Testing (Age 30 to 64) Every 5 Years 1992 Cervical Cancer Screening with HPV 1992 Mammogram Screening 2002 Zoster Vaccines (1 of 2) 2012 COVID-19 Vaccine ( - 2023-2 5 season) 2023 Influenza Adult (#1) 2023 RSV Immunization or 60+ Years (1 - 1-dose 75+ series) 2037 Meningococcal B Vaccine Aged Out No l onger eligible based on patient's age to complete this topic Meningococcal Vaccine Aged Out No tonya louise eligible based on patient's age to complete this topic Pneumococcal Vaccine: Pediat rics (0 to 5 Years) and At-Risk Patients (6 to 64 Years) Aged Out No longer eligible b ased on patient's age to complete this topic RSV Immunizations Under 20 Months Aged Out No longer eligible based on patient's age to complete this topic Insurance MEDICARE [facility] Care Teams Physical Ther Relationship Specialty Start Date End Date Pepe Shabazz MD [address] [place] [address] PCP - General FAMILY PRACTICE 11/15/22
== END 2024-05-06 08:48 | disposition home or self-care (01) ==
PROVIDERS: PCP Family Medicine; Visit Provider Nurse Practitioner Family
DX: I35.8 Other nonrheumatic aortic valve disorders (principal); I35.1 Nonrheumatic aortic (valve) insufficiency; I37.1 Nonrheumatic pulmonary valve insufficiency; I10 Essential (primary) hypertension; E78.2 Mixed hyperlipidemia; E78.5 Hyperlipidemia, unspecified; Z82.49 Family history of ischemic heart disease and other diseases of the circulatory system
CPT/HCPCS: 93306

== ENCOUNTER 2024-07-04 13:42 | Outpatient (CLI) | payer MEDICARE, SELFPAY ==
--- NOTE | ~2024-07-04 | MM_ITS ---
EXAMINATION: MM screening chavez BI w tiffany HISTORY: Screening TECHNIQUE: Craniocaudal and mediolateral oblique 3-D tomosynthesis images were obtained and synthetic 2-D images were generated. CAD analysis was submitted and interpreted. COMPARISON: Comparison to multiple prior studies sequentially, with oldest reviewed study dated 09/2020. BREAST PARENCHYMAL COMPOSITION: Dense: The breasts are heterogeneously dense, which may obscure small masses FINDINGS: There is no evidence of suspicious mass, calcification, or architectural distortion to sugg est malignancy in either breast. There has been no suspicious interval change. IMPRESSION: 1. No mammographic evidence of malignancy. 2. Recommend routine screening mammography in one year. BI-RADS Category 1: Negative Reviewed, dictated and finalized at location A.
== END 2024-07-04 13:43 | disposition home or self-care (01) ==
PROVIDERS: PCP Family Medicine
DX: Z12.31 Encounter for screening mammogram for malignant neoplasm of breast (principal)
CPT/HCPCS: 77063; 77067